=== PATIENT | male | born 1995 | race Hispanic/Latino ===

== ENCOUNTER 2018-09-28 12:52 | Emergency (ER) | payer BC, OTHER ==
[2018-09-28] MEDS ORDERED: TETANUS/DIPHTHERIA TOXOID [ADULT] 0.5 ML VIAL IM ONE (13:34)
[2018-09-28] MEDS ORDERED: LIDOCAINE HCL 1% 20 ML VIAL ONE (14:09)
== END 2018-09-28 15:15 | disposition home or self-care (01) ==
LOC: EDH 12:52
DX: S61.225A Laceration with foreign body of left ring finger without damage to nail, initial encounter (principal); S60.222A Contusion of left hand, initial encounter; Z72.0 Tobacco use; V89.0XXA Person injured in unspecified motor-vehicle accident, nontraffic, initial encounter; Y93.89 Activity, other specified; Y92.89 Other specified places as the place of occurrence of the external cause; Y99.8 Other external cause status
CPT/HCPCS: 10120; 73130; 90471; 90714